=== PATIENT | male | born 1965 | race Caucasian/White ===

== ENCOUNTER 2018-02-07 17:36 | Emergency (ER) | payer MEDICARE, OTHER ==
[2018-02-07 17:52] LABS: Glucose,Whole Blood 158 mg/dL (75-99)
[2018-02-07] MEDS ORDERED: SODIUM CHLORIDE 0.9% 1,000 ML IV ONE ×2 (17:55→19:56)
[2018-02-07 18:23] LABS: Basophils % (A) 0 %; Eosinophils % (A) 0 %; HGB 16.7 gm/dL (13.0-17.5); Lymphocytes % (A) 16 %; MCH 30.7 pg (25.0-35.0); MCHC 35.6 g/dL (31.0-37.0); MCV 86.1 fL (80.0-100.0); Mean Platelet Volume 6.5; Monocytes # (A) 0.5 k/uL (0-1.0); Monocytes % (A) 9 %; Neutrophils # (A) 4.5 k/uL (1.3-7.7); Neutrophils % (A) 72 %; Platelet Count 469 k/uL (150-450); RBC 5.45 m/uL (4.30-5.90); RDW 11.9 % (11.5-15.5); WBC 6.3 k/uL (3.8-10.6)
[2018-02-07 18:27] LABS: INR 1.1 (<1.2); Partial Thromboplastin Time 25.6 sec (22.0-30.0); Prothrombin Time 10.5 sec (9.0-12.0)
[2018-02-07 18:28] LABS: ALT 55 U/L (21-72); AST 42 U/L (17-59); Albumin 4.4 g/dL (3.5-5.0); Alkaline Phosphatase 154 U/L (38-126); Anion Gap 26 mmol/L; Blood Urea Nitrogen 26 mg/dL (9-20); Calcium 9.9 mg/dL (8.4-10.2); Carbon Dioxide 27 mmol/L (22-30); Glucose 149 mg/dL (74-99); Potassium 3.6 mmol/L (3.5-5.1); Sodium 126 mmol/L (137-145); Total Bilirubin 0.8 mg/dL (0.2-1.3)
[2018-02-07 18:30] LABS: Chloride 73 mmol/L (98-107)
[2018-02-07 18:45] LABS: Creatine Kinase 27 U/L (55-170)
--- NOTE | 2018-02-07 18:45 | CT ---
EXAMINATION TYPE: CT brain wo con DATE OF EXAM: 02/07/2018 COMPARISON: NONE HISTORY: Patient poor historian. Altered mental status. CT DLP: 788.8 mGycm Automated exposure control for dose reduction was used. FINDINGS: Ventricles of normal size. There is no mass effect nor midline shift. There is no sign of intracrania l hemorrhage. Calvarium appears normal. There is some debris in the right external auditory canal. IMPRESSION: NEGATIVE CT SCAN OF THE BRAIN.
--- NOTE | 2018-02-07 18:46 | XR ---
EXAMINATION TYPE: XR chest 2V DATE OF EXAM: 02/07/2018 COMPARISON: 01/27/2013 HISTORY: Altered mental status. TECHNIQUE: Frontal and lateral views of the chest are obtained. FINDINGS: Heart and mediastinum are normal. Lungs are clear. Diaphragm is normal. There are chest le ads. There is old left-sided healed rib fracture. IMPRESSION: No cardiopulmonary disease. No change.
[2018-02-07 18:58] LABS: Creatine Kinase MB <0.2 ng/mL (0.0-2.4); Troponin I <0.012 ng/mL (0.000-0.034)
[2018-02-07 19:23] VITALS: RESP 16
[2018-02-07 19:53] LABS: Appearance,Urine Clear (Clear); Bacteria,Urine Rare /hpf; Bilirubin,Urine 1+ (Negative); Blood,Urine Negative (Negative); Color,Urine Yellow; Glucose,Urine (UA) Negative (Negative); Ketones,Urine 2+ (Negative); Leukocyte Esterase,Urine Trace (Negative); Mucus,Urine Rare /hpf; Nitrite,Urine Negative (Negative); PH, Urine 6.5 (5.0-8.0); Protein,Urine 1+ (Negative); RBC,Urine 1 /hpf (0-5); Specific Gravity,Urine 1.017 (1.001-1.035); Squamous Epithelial Cell,Urine <1 /hpf (0-4); WBC,Urine 1 /hpf (0-5)
[2018-02-07 20:07] LABS: Amphetamine Screen,Urine Not Detected (NotDetected); Barbiturate Screen,Urine Not Detected (NotDetected); Benzodiazepines Screen,Urine Not Detected (NotDetected); Cocaine Screen,Urine Not Detected (NotDetected); Methadone Screen, Urine Not Detected (NotDetected); Opiate Screen,Urine Not Detected (NotDetected); Oxycodone Screen, Urine Not Detected (NotDetected); Phencyclidine Screen,Urine Not Detected (NotDetected); Tricyclic Antidepressant,Urine Not Detected (NotDetected); Urn Cannabinoid Scrn Not Detected (NotDetected)
--- NOTE | 2018-02-07 20:15 | ED ---
Altered Mental Status HPI - General Chief Complaint: Altered Mental Status Stated Complaint: Altered mental status Time Seen by Provider: 02/07/18 17:49 Source: EMS Mode of arrival: EMS Limitations: altered mental status - History of Present Illness Initial Comments: CT 2 years old male brought in by EMS, is nonverbal he was seen doing fine 2 days ago by son his son went to check on him and he was laying on the couch she was talking normal on arrival to the ER he is totally nonverbal he does not follow any commands his eyes open he looks at you and no review of system is available. I spoke with his son and his son denied any possible medical history his son said he does have a history of drinking - Related Data Home Medications Medication Instructions Recorded Confirmed No Known Home Medications [No 02/07/18 02/07/18 Known Home Medications] Allergies Allergy/AdvReac Type Severity Reaction Status Date / Time No Known Allergies Allergy Verified 07/07/16 15:50 Review of Systems ROS Statement: Those systems with pertinent positive or pertinent negative responses have been documented in the HPI. ROS Other: All systems not noted in ROS Statement are negative. Past Medical History Past Medical History: GERD/Reflux Additional Past Medical History / Comment(s): CURRENT: DIARRHEA. HX: COLON POLYPS. History of Any Multi-Drug Resistant Organisms: None Reported Past Surgical History: Tonsillectomy Additional Past Surgical History / Comment(s): RECONSTRUCTION OF NOSE (FRACTURE) Past Anesthesia/Blood Transfusion Reactions: Motion Sickness Past Psychological History: Anxiety Smoking Status: Current every day smoker Past Alcohol Use History: Occasional Past Drug Use History: None Reported General Exam - General Exam Comments Initial Comments: General: The patient is awake , his eyes open he is blinking his eyes he does not follow any commands holding his both arms and a flex position Skin: Skin is warm and dry and no rashes or lesions are noted. Eye: Pupils are equal, round and reactive to light, extra-ocular movements are intact; there is normal conjunctiva bilaterally. Ears, nose, mouth and throat he does not cooperate to open his mouth Neck: The neck is supple, there is no tenderness Cardiovascular: There is a regular rate and rhythm. No murmur, rub or gallop is appreciated. Noticed tachycardia Respiratory: To auscultation bilateral decreased breath sounds bilateral Gastrointestinal: Soft, non-distended, non-tender abdomen without masses or organomegaly noted. There is no rebound or guarding present. Bowel sounds are unremarkable. Back: There is no tenderness to palpation in the midline. There is no obvious deformity. Musculoskeletal: Both upper extremities extremities are flexed him is holding them over his chest CT are very stiff him a his legs are extended they are very stiff as well, deep tendon reflexes seems hyperactive or hyperreactive Neurological: He does not follow any commands, he is awake. Psychiatric: Cooperative, appropriate mood & affect, normal judgment. Limitations: altered mental status Course Vital Signs 02/07/18 02/07/18 02/07/18 18:13 19:00 19:22 Temperature 97.1 F L Pulse Rate 126 H 137 H 126 H Respiratory 18 18 16 Rate Blood Pressure 130/78 129/85 127/74 O2 Sat by Pulse 98 96 97 Oximetry 02/07/18 20:13 Temperature Pulse Rate 122 H Respiratory 16 Rate Blood Pressure 112/55 O2 Sat by Pulse 98 Oximetry I am EKG is sinus tachycardia ventricular rate is 124 [place] interval is 122 QRS duration is 118 QT/QTc is 380/545 review of this EKG his heart rate has settled more artifacts in the EKG, do not see any ST elevation or ST depression Medical Decision Making - Lab Data Result diagrams: 02/07/18 17:44 02/07/18 17:44 Lab Results 02/07/18 02/07/18 02/07/18 Range/Units 17:44 17:44 17:44 WBC 6.3 (3.8-10.6) k/uL RBC 5.45 (4.30-5.90) m/uL Hgb 16.7 (13.0-17.5) gm/dL Hct 47.0 (39.0-53.0) % MCV 86.1 (80.0-100.0) fL MCH 30.7 (25.0-35.0) pg MCHC 35.6 (31.0-37.0) g/dL RDW 11.9 (11.5-15.5) % Plt Count 469 H (150-450) k/uL Neutrophils % 72 % Lymphocytes % 16 % Monocytes % 9 % Eosinophils % 0 % Basophils % 0 % Neutrophils # 4.5 (1.3-7.7) k/uL Lymphocytes # 1.0 (1.0-4.8) k/uL Monocytes # 0.5 (0-1.0) k/uL Eosinophils # 0.0 (0-0.7) k/uL Basophils # 0.0 (0-0.2) k/uL PT (9.0-12.0) sec INR (<1.2) APTT (22.0-30.0) sec Sodium (137-145) mmol/L Potassium (3.5-5.1) mmol/L Chloride (98-107) mmol/L Carbon Dioxide (22-30) mmol/L Anion Gap mmol/L BUN (9-20) mg/dL Creatinine (0.66-1.25) mg/dL Est GFR (CKD-EPI)AfAm (>60 ml/min/1.73 sqM) Est GFR (CKD-EPI)NonAf (>60 ml/min/1.73 sqM) Glucose (74-99) mg/dL POC Glucose (mg/dL) (75-99) mg/dL POC Glu Eye Dropper Assembler ID Calcium (8.4-10.2) mg/dL Total Bilirubin (0.2-1.3) mg/dL AST (17-59) U/L ALT (21-72) U/L Alkaline Phosphatase (38-126) U/L Ammonia 14 (<30) umol/L Total Creatine Kinase 27 L (55-170) U/L CK-MB (CK-2) <0.2 (0.0-2.4) ng/mL CK-MB (CK-2) Rel Index Troponin I <0.012 (0.000-0.034) ng/mL Total Protein (6.3-8.2) g/dL Albumin (3.5-5.0) g/dL Urine Color Urine Appearance (Clear) Urine pH (5.0-8.0) Ur Specific Prichard (1.001-1.035) Urine Protein (Negative) Urine Glucose (UA) (Negative) Urine Ketones (Negative) Urine Blood (Negative) Urine Nitrite (Negative) Urine Bilirubin (Negative) Urine Urobilinogen (<2.0) mg/dL Ur Leukocyte Esterase (Negative) Urine RBC (0-5) /hpf Urine WBC (0-5) /hpf Ur Squamous Epith Cells (0-4) /hpf Urine Bacteria (None) /hpf Urine Mucus (None) /hpf Urine Opiates Screen (NotDetected) Ur Oxycodone Screen (NotDetected) Urine Methadone Screen (NotDetected) Ur Propoxyphene Screen (NotDetected) Ur Barbiturates Screen (NotDetected) U Tricyclic Antidepress (NotDetected) Ur Phencyclidine Scrn (NotDetected) Ur Amphetamines Screen (NotDetected) U Methamphetamines Scrn (NotDetected) U Benzodiazepines Scrn (NotDetected) Urine Cocaine Screen (NotDetected) U Marijuana (THC) Screen (NotDetected) 02/07/18 02/07/18 02/07/18 Range/Units 17:44 17:44 17:48 WBC (3.8-10.6) k/uL RBC (4.30-5.90) m/uL Hgb (13.0-17.5) gm/dL Hct (39.0-53.0) % MCV (80.0-100.0) fL MCH (25.0-35.0) pg MCHC (31.0-37.0) g/dL RDW (11.5-15.5) % Plt Count (150-450) k/uL Neutrophils % % Lymphocytes % % Monocytes % % Eosinophils % % Basophils % % Neutrophils # (1.3-7.7) k/uL Lymphocytes # (1.0-4.8) k/uL Monocytes # (0-1.0) k/uL Eosinophils # (0-0.7) k/uL Basophils # (0-0.2) k/uL PT 10.5 (9.0-12.0) sec INR 1.1 (<1.2) APTT 25.6 (22.0-30.0) sec Sodium 126 L (137-145) mmol/L Potassium 3.6 (3.5-5.1) mmol/L Chloride 73 L* (98-107) mmol/L Carbon Dioxide 27 (22-30) mmol/L Anion Gap 26 mmol/L BUN 26 H (9-20) mg/dL Creatinine 0.80 (0.66-1.25) mg/dL Est GFR (CKD-EPI)AfAm >90 (>60 ml/min/1.73 sqM) Est GFR (CKD-EPI)NonAf >90 (>60 ml/min/1.73 sqM) Glucose 149 H (74-99) mg/dL POC Glucose (mg/dL) 158 H (75-99) mg/dL POC Glu Eye Dropper Assembler ID Frances De La Rosa Calcium 9.9 (8.4-10.2) mg/dL Total Bilirubin 0.8 (0.2-1.3) mg/dL AST 42 (17-59) U/L ALT 55 (21-72) U/L Alkaline Phosphatase 154 H (38-126) U/L Ammonia (<30) umol/L Total Creatine Kinase (55-170) U/L CK-MB (CK-2) (0.0-2.4) ng/mL CK-MB (CK-2) Rel Index Troponin I (0.000-0.034) ng/mL Total Protein 7.0 (6.3-8.2) g/dL Albumin 4.4 (3.5-5.0) g/dL Urine Color Urine Appearance (Clear) Urine pH (5.0-8.0) Ur Specific Prichard (1.001-1.035) Urine Protein (Negative) Urine Glucose (UA) (Negative) Urine Ketones (Negative) Urine Blood (Negative) Urine Nitrite (Negative) Urine Bilirubin (Negative) Urine Urobilinogen (<2.0) mg/dL Ur Leukocyte Esterase (Negative) Urine RBC (0-5) /hpf Urine WBC (0-5) /hpf Ur Squamous Epith Cells (0-4) /hpf Urine Bacteria (None) /hpf Urine Mucus (None) /hpf Urine Opiates Screen (NotDetected) Ur Oxycodone Screen (NotDetected) Urine Methadone Screen (NotDetected) Ur Propoxyphene Screen (NotDetected) Ur Barbiturates Screen (NotDetected) U Tricyclic Antidepress (NotDetected) Ur Phencyclidine Scrn (NotDetected) Ur Amphetamines Screen (NotDetected) U Methamphetamines Scrn (NotDetected) U Benzodiazepines Scrn (NotDetected) Urine Cocaine Screen (NotDetected) U Marijuana (THC) Screen (NotDetected) 02/07/18 Range/Units 19:37 WBC (3.8-10.6) k/uL RBC (4.30-5.90) m/uL Hgb (13.0-17.5) gm/dL Hct (39.0-53.0) % MCV (80.0-100.0) fL MCH (25.0-35.0) pg MCHC (31.0-37.0) g/dL RDW (11.5-15.5) % Plt Count (150-450) k/uL Neutrophils % % Lymphocytes % % Monocytes % % Eosinophils % % Basophils % % Neutrophils # (1.3-7.7) k/uL Lymphocytes # (1.0-4.8) k/uL Monocytes # (0-1.0) k/uL Eosinophils # (0-0.7) k/uL Basophils # (0-0.2) k/uL PT (9.0-12.0) sec INR (<1.2) APTT (22.0-30.0) sec Sodium (137-145) mmol/L Potassium (3.5-5.1) mmol/L Chloride (98-107) mmol/L Carbon Dioxide (22-30) mmol/L Anion Gap mmol/L BUN (9-20) mg/dL Creatinine (0.66-1.25) mg/dL Est GFR (CKD-EPI)AfAm (>60 ml/min/1.73 sqM) Est GFR (CKD-EPI)NonAf (>60 ml/min/1.73 sqM) Glucose (74-99) mg/dL POC Glucose (mg/dL) (75-99) mg/dL POC Glu Eye Dropper Assembler ID Calcium (8.4-10.2) mg/dL Total Bilirubin (0.2-1.3) mg/dL AST (17-59) U/L ALT (21-72) U/L Alkaline Phosphatase (38-126) U/L Ammonia (<30) umol/L Total Creatine Kinase (55-170) U/L CK-MB (CK-2) (0.0-2.4) ng/mL CK-MB (CK-2) Rel Index Troponin I (0.000-0.034) ng/mL Total Protein (6.3-8.2) g/dL Albumin (3.5-5.0) g/dL Urine Color Yellow Urine Appearance Clear (Clear) Urine pH 6.5 (5.0-8.0) Ur Specific Prichard 1.017 (1.001-1.035) Urine Protein 1+ H (Negative) Urine Glucose (UA) Negative (Negative) Urine Ketones 2+ H (Negative) Urine Blood Negative (Negative) Urine Nitrite Negative (Negative) Urine Bilirubin 1+ H (Negative) Urine Urobilinogen 2.0 (<2.0) mg/dL Ur Leukocyte Esterase Trace H (Negative) Urine RBC 1 (0-5) /hpf Urine WBC 1 (0-5) /hpf Ur Squamous Epith Cells <1 (0-4) /hpf Urine Bacteria Rare H (None) /hpf Urine Mucus Rare H (None) /hpf Urine Opiates Screen Not Detected (NotDetected) Ur Oxycodone Screen Not Detected (NotDetected) Urine Methadone Screen Not Detected (NotDetected) Ur Propoxyphene Screen Not Detected (NotDetected) Ur Barbiturates Screen Not Detected (NotDetected) U Tricyclic Antidepress Not Detected (NotDetected) Ur Phencyclidine Scrn Not Detected (NotDetected) Ur Amphetamines Screen Not Detected (NotDetected) U Methamphetamines Scrn Not Detected (NotDetected) U Benzodiazepines Scrn Not Detected (NotDetected) Urine Cocaine Screen Not Detected (NotDetected) U Marijuana (THC) Screen Not Detected (NotDetected) Critical Care Time Total Critical Care Time: 45 Critical Care Time: 52 years old gentleman comes in with the aphasic, his eyes open he is not able to follow any commands seems like it he is not able to comprehend any of the conversation is very stiff arms are flexed he cannot extend them labs CBC looks normal INR is normal so is 126 chloride is 73 apart from that compressive metabolic panel looks good troponin is fine EKG is a sinus tachycardia chest x- rays normal head CT is normal. I spoke to Dr. Rocha on-call neurologist Dr. Rocha recommended that we need to do emergent MR and spinal tap but today he is supposed staff to be almost next to impossible to get him in a position to do the LP second emergent MR 0 To the radiology department see if they are able to do the Dr. 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 Spoke with the Dr. 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 Patient will be transferred to [facility], excepting physician is Disposition Clinical Impression: CVA (cerebral vascular accident), Tachycardia, Aphasia Disposition: OTHER INSTITUTION NOT DEFINED Condition: Fair Is patient prescribed a controlled substance at d/c from ED?: No When asked, does pt state using other controlled substances?: No If prescribed controlled substance>3 days was MAPS reviewed?: No If opioid is for acute pain is fill amount 7 days or less?: No If Rx opioid, was Start Talking consent form obtained?: No Referrals: None,Stated [Primary Care Provider] - 1-2 days - Out of Hospital Transfer - Req. Specs Out of Hospital Transfer - Requested Specifics: Other Emergency Center (Patient will be transferred to [facility] was accepted by ER physician Dr Damon)
[2018-02-07 20:44] VITALS: BP 115/74; PULSE 113; TEMP 100.1
[2018-02-07] MEDS ORDERED: ACETAMINOPHEN IV (For NPO) 1,000 MG in EMPTY BAG 1 BAG IVPB STA (20:49)
== END 2018-02-07 21:14 | disposition short-term general hospital (02) ==
LOC: EC 17:36
DX: I63.9 Cerebral infarction, unspecified (principal); E87.1 Hypo-osmolality and hyponatremia; R47.01 Aphasia; R00.0 Tachycardia, unspecified; R41.82 Altered mental status, unspecified; F17.200 Nicotine dependence, unspecified, uncomplicated; Z90.89 Acquired absence of other organs
CPT/HCPCS: 99291; 96365; 96366 ×2; 96375; 36415; 93005; 84300; 80053; 82140; 82550; 82553; 84484; 85025; 85610; 85730; 81001; 83935; 87040; 80306; 71046; 70450; J0131